=== PATIENT | female | born 1955 | race Caucasian/White ===

== ENCOUNTER 2017-02-06 15:57 | Emergency (ER) | payer OTHER ==
[2017-02-06 16:21] VITALS: BP 143/72; PULSE 79; TEMP 98.4; BMI 40.4
--- NOTE | 2017-02-06 16:35 | PDOC ---
History of Present Illness - General Chief Complaint: Wound Stated Complaint: RT FINGER INJURY Time Seen by Provider: 02/06/17 16:18 History Source: Patient Exam Limitations: No Limitations - History of Present Illness Initial Comments: 02/06/17 16:30 61 yr female with c/o redness around her cuticle for 3 days after biting nails. Pt states yesterday she noticed it was white so she soaked it and the pus drained. pain has improved. Severity: Yes: mild Location: reports: extremities Past History - Past Medical History Allergies/Adverse Reactions: Allergies Allergy/AdvReac Type Severity Reaction Status Date / Time nafcillin [Nafcillin] Allergy Intermediate Itching Verified 02/06/17 16:09 cefazolin Allergy Verified 02/06/17 16:09 Iodinated Contrast- Oral and Allergy Verified 02/06/17 16:09 IV Dye [IV Dye, Iodine Containing Contrast ] vancomycin Allergy Verified 02/06/17 16:09 Home Medications: Ambulatory Orders Amlodipine Besylate [Norvasc -] 10 mg PO DAILY #1 10/02/12 Atorvastatin Ca [Lipitor] 20 mg PO DAILY #1 10/02/12 Gemfibrozil 600 mg PO DAILY #1 10/02/12 Metformin HCl [Glucophage -] 500 mg PO BID #1 10/02/12 Omeprazole [Prilosec (RX)] 20 mg PO DAILY #1 10/02/12 Ramipril 2.5 mg PO DAILY #1 10/02/12 Aspirin 81 mg PO DAILY #1 02/11/13 Clobetasol Prop 0.05% Top Cr [Temovate (Nf)] 1 misc AD BID 06/14/13 Lipase/Protease/Amylase [Odin Carmen 24,000 Units Capsule] 1 each PO TID 06/14/13 Albuterol 0.083% Nebulizer Magali [Ventolin 0.083% Nebulizer Soln -] 1 neb NEB Q4H PRN #1 box 04/25/14 Salmeterol/Fluticasone [Advair 100Mcg/50Mcg -] 1 inh PO BID #1 diskus NS Eluxadoline [Viberzi] 75 mg PO ASDIR 02/06/17 Oxybutynin [Oxytrol For Women] 1 each TD ASDIR 02/06/17 Sulfamethoxazole/Trimethoprim [Bactrim Ds Tablet] 1 each PO BID #10 tablet 02/06 Anemia: No Asthma: Yes Cancer: No Cardiac Disorders: Yes CVA: No COPD: No CHF: No Dementia: No Diabetes: Yes GI Disorders: Yes (ACID REFLUX) Disorders: No HTN: Yes Hypercholesterolemia: Yes Kidney Stones: Yes (LITHOTRIPSY) Liver Disease: No Seizures: No Thyroid Disease: No - Surgical History Abdominal Surgery: Yes (UMBILICAL HERNIA REPAIR) Appendectomy: Yes (1988) Cardiac Surgery: Yes (PACEMAKER) Cholecystectomy: No Lung Surgery: No Neurologic Surgery: No Orthopedic Surgery: Yes (rt knee replace(titanium metal)) - Immunization History Immunization Up to Date: Yes - Suicide/Smoking/Psychosocial Hx Smoking Status: No Smoking History: Never smoked Have you smoked in the past 12 months: No Number of Cigarettes Smoked Daily: 0 Information on smoking cessation initiated: No Hx Alcohol Use: No Drug/Substance Use Hx: No Substance Use Type: None Hx Substance Use Treatment: No *Physical Exam - Vital Signs Last Vital Signs Temp Pulse Resp BP Pulse Ox 98.4 F 79 18 143/72 100 02/06/17 16:00 02/06/17 16:00 02/06/17 16:00 02/06/17 16:00 02/06/17 16:00 - Physical Exam General Appearance: Yes: Nourished, Appropriately Dressed, Obese HEENT: positive: EOMI, LOUISE Extremity: positive: Normal Capillary Refill, Normal Range of Motion, Swelling ( right ring finger with red area around the cuticle, no discharge or pus drainage ) Integumentary: positive: Rash (right abdominal area under folds of skin area of redness, white scaly approximately 5cm) Neurologic: positive: Fully Oriented, Alert, Normal Mood/Affect, Normal Response , Motor Strength 5/5 Procedures - Additional Procedures Progress: 02/06/17 16:37 paronychia cleaned with betadine bandaid placed Medical Decision Making - Medical Decision Making 02/06/17 16:37 cc: paronychia to the right ring finger that has healed on own yesterday when pt drained it at home, now it is red around the cuticle no fluctuance or drainage pt is worried because she is diabetic will clean and place pt on bactrim pt has nystatin cream that she will place on the area of skin fold excoraiton *DC/Admit/Observation/Transfer Diagnosis at time of Disposition: Fungal rash of trunk Paronychia of finger Qualifiers: Laterality: right Qualified Code(s): L03.011 - Cellulitis of right finger - Discharge Dispostion Disposition: HOME Condition at time of disposition: Good - Prescriptions Prescriptions: Sulfamethoxazole/Trimethoprim [Bactrim Ds Tablet] 1 each PO BID #10 tablet - Referrals Referrals: Stacy Guy MD [Primary Care Provider] - - Patient Instructions Additional Instructions: soak the finger twice a day in warm water with dish soap apply the Nystatin to the rash on your abdomen and keep that area dry take the antibiotics as directed for 5 days - Post Discharge Activity
== END 2017-02-06 16:36 | disposition home or self-care (01) ==
LOC: JERFT 15:57 → JER 15:57 → JERFT 16:36
DX: L03.011 Cellulitis of right finger (principal); B36.8 Other specified superficial mycoses; I10 Essential (primary) hypertension; E11.9 Type 2 diabetes mellitus without complications; Z79.84 Long term (current) use of oral hypoglycemic drugs; E78.00 Pure hypercholesterolemia, unspecified; J45.909 Unspecified asthma, uncomplicated; Z87.442 Personal history of urinary calculi
CPT/HCPCS: 99281-25

== ENCOUNTER 2017-05-25 21:56 | Inpatient (IN) | payer OTHER ==
[2017-05-25 22:41] VITALS: BMI 41.4
--- NOTE | 2017-05-25 23:33 | PDOC ---
History of Present Illness - General History Source: Patient Exam Limitations: No Limitations - History of Present Illness Initial Comments: 05/26/17 00:56 The patient is a 61 year old female with a significant PMH of HTN, asthma, hyperlipidemia, diabetes, GERD, and multiple hernias who presents to the emergency department with abdominal pain and diarrhea beginning approximately this morning. She also reports some nausea and abdominal distension but denies vomiting. The patient reports her abdominal pain is similar to when she had her most recent hernia about 6 months ago and feels a bump where her previous hernia presented. She denies recent travel or sick contacts. The patient denies chest pain, shortness of breath, headache and dizziness. Denies fever, chills, vomit, and constipation. Denies dysuria, frequency, urgency and hematuria. Allergies: Nafcillin, Cefazolin, Vancomycin. Oral & IV contrast. Past surgical history: Ventral hernia repair (6 months ago). Umbilical hernia repair. Appendectomy. Pacemaker placement. Right knee replacement. Social history: No reported cigarette, alcohol, or drug use. PCP: Dr. Stacy Guy <Alberto Toussaint - Last Filed: 05/26/17 01:51> - General History Source: Patient <Lupillo Velasquez - Last Filed: 05/30/17 19:33> - General Chief Complaint: Pain Stated Complaint: PAIN, ACUTE Time Seen by Provider: 05/25/17 23:29 Past History <Alberto Toussaint - Last Filed: 05/26/17 01:51> - Past Medical History Anemia: No Asthma: Yes Cancer: No Cardiac Disorders: Yes CVA: No COPD: No CHF: No Dementia: No Diabetes: Yes GI Disorders: Yes (ACID REFLUX) Disorders: No HTN: Yes Hypercholesterolemia: Yes Kidney Stones: Yes (LITHOTRIPSY) Liver Disease: No Seizures: No Thyroid Disease: No - Surgical History Abdominal Surgery: Yes (UMBILICAL HERNIA REPAIR) Appendectomy: Yes (1988) Cardiac Surgery: Yes (PACEMAKER) Cholecystectomy: No Lung Surgery: No Neurologic Surgery: No Orthopedic Surgery: Yes (rt knee replace(titanium metal)) - Immunization History Immunization Up to Date: Yes - Suicide/Smoking/Psychosocial Hx Smoking Status: No Smoking History: Never smoked Have you smoked in the past 12 months: No Number of Cigarettes Smoked Daily: 0 Information on smoking cessation initiated: No Hx Alcohol Use: No Drug/Substance Use Hx: No Substance Use Type: None Hx Substance Use Treatment: No <Lupillo Velasquez - Last Filed: 05/30/17 19:33> - Past Medical History Allergies/Adverse Reactions: Allergies Allergy/AdvReac Type Severity Reaction Status Date / Time nafcillin [Nafcillin] Allergy Intermediate Itching Verified 02/06/17 16:09 cefazolin Allergy Verified 02/06/17 16:09 Iodinated Contrast- Oral and Allergy Verified 02/06/17 16:09 IV Dye [IV Dye, Iodine Containing Contrast ] vancomycin Allergy Verified 02/06/17 16:09 Home Medications: Ambulatory Orders Amlodipine Besylate [Norvasc -] 10 mg PO DAILY #1 10/02/12 Atorvastatin Ca [Lipitor] 20 mg PO DAILY #1 10/02/12 Omeprazole [Prilosec (RX)] 20 mg PO DAILY #1 10/02/12 Ramipril 2.5 mg PO DAILY #1 10/02/12 metFORMIN HCL [Glucophage -] 500 mg PO BID #1 10/02/12 Aspirin 81 mg PO DAILY #1 02/11/13 Albuterol 0.083% Nebulizer Magali [Ventolin 0.083% Nebulizer Soln -] 1 neb NEB Q4H PRN #1 box 04/25/14 Eluxadoline [Viberzi] 75 mg PO ASDIR 02/06/17 Review of Systems - Review of Systems Able to Perform ROS?: Yes Comments:: 05/26/17 00:56 CONSTITUTIONAL: Absent: fever, chills, diaphoresis, generalized weakness, malaise, loss of appetite HEENT: Absent: rhinorrhea, nasal congestion, throat pain, throat swelling, difficulty swallowing, mouth swelling, ear pain, eye pain, visual Changes CARDIOVASCULAR: Absent: chest pain, syncope, palpitations, irregular heart rate, lightheadedness , peripheral edema RESPIRATORY: Absent: cough, shortness of breath, dyspnea with exertion, orthopnea, wheezing, stridor, hemoptysis GASTROINTESTINAL: (+) Abdominal pain. (+) Diarrhea. (+) Abdominal distension. (+ ) Nausea. Absent: vomiting, constipation, melena, hematochezia GENITOURINARY: Absent: dysuria, frequency, urgency, hesitancy, hematuria, flank pain, genital pain MUSCULOSKELETAL: Absent: myalgia, arthralgia, joint swelling SKIN: Absent: rash, itching, pallor HEMATOLOGIC/IMMUNOLOGIC: Absent: easy bleeding, easy bruising, lymphadenopathy, frequent infections ENDOCRINE: Absent: unexplained weight gain, unexplained weight loss, heat intolerance, cold intolerance NEUROLOGIC: Absent: headache, focal weakness or paresthesias, dizziness, unsteady gait, seizure, mental status changes, bladder or bowel incontinence PSYCHIATRIC: Absent: anxiety, depression, suicidal or homicidal ideation, hallucinations. <Alberto Toussaint - Last Filed: 05/26/17 01:51> *Physical Exam - Vital Signs Last Vital Signs Temp Pulse Resp BP Pulse Ox 98.3 F 94 H 18 147/87 96 05/25/17 22:37 05/25/17 22:37 05/25/17 22:37 05/25/17 22:37 05/25/17 22:37 - Physical Exam Comments: 05/26/17 00:57 GENERAL: Well developed, well nourished. Awake and alert. No acute distress. HEENT: Normocephalic, atraumatic. PERRLA, EOMI. No conjunctival pallor. Sclera are non- icteric. Moist mucous membranes. Oropharynx is clear. NECK: Supple. Full ROM. No JVD. Carotid pulses 2+ and symmetric, without bruits. No thyromegaly. No lymphadenopathy. CARDIOVASCULAR: Regular rate and rhythm. No murmurs, rubs, or gallops. Distal pulses are 2+ and symmetric. PULMONARY: No evidence of respiratory distress. Lungs clear to auscultation bilaterally. No wheezing, rales or rhonchi. ABDOMINAL: (+) Hernial defect just under the umbilicus. (+) Protuberant abdomen. Soft. Non-tender. No rebound or guarding. No organomegaly. Normoactive bowel sounds. MUSCULOSKELETAL Normal range of motion at all joints. No bony deformities or tenderness. No CVA tenderness. EXTREMITIES: No cyanosis. No clubbing. No edema. No calf tenderness. SKIN: Warm and dry. Normal capillary refill. No rashes. No jaundice. NEUROLOGICAL: Alert, awake, appropriate. Cranial nerves 2-12 intact. No deficits to light touch and temperature in face, upper extremities and lower extremities. No motor deficits in the in face, upper extremities and lower extremities. Normoreflexic in the upper and lower extremities. Normal speech. Toes are downgoing bilaterally. Gait is normal without ataxia. PSYCHIATRIC: Cooperative. Good eye contact. Appropriate mood and affect. <Alberto Toussaint - Last Filed: 05/26/17 01:51> - Vital Signs Last Vital Signs Temp Pulse Resp BP Pulse Ox 98.3 F 94 H 18 147/87 96 05/25/17 22:37 05/25/17 22:37 05/25/17 22:37 05/25/17 22:37 05/25/17 22:37 <Lupillo Velasquez - Last Filed: 05/30/17 19:33> Heart Score/ECG Review #1 05/26/17 01:51 Vent rate 92 bpm Normal sinus rhythm Left axis deviation Right bundle branch block Possible lateral infarct, age undetermined Abnormal ECG <Alberto Toussaint - Last Filed: 05/26/17 01:51> ED Treatment Course - LABORATORY CBC & Chemistry Diagram: 05/26/17 00:30 05/26/17 00:30 - ADDITIONAL ORDERS Additional order review: Laboratory Results 05/25/17 23:54 Urine Color Yellow Urine Appearance Clear Urine pH 5.0 Ur Specific [place] 1.031 Urine Protein 2+ H Urine Glucose (UA) Negative Urine Ketones Trace H Urine Blood Negative Urine Nitrite Negative Urine Bilirubin Negative Urine Urobilinogen Negative Ur Leukocyte Esterase 1+ H Urine WBC (Auto) 14 Urine RBC (Auto) 9 Ur Epithelial Cells Rare Urine Mucus Rare 05/26/17 00:30 RBC 4.75 MCV 82.3 MCHC 32.4 RDW 14.0 MPV 9.3 Neutrophils % 86.5 H Lymphocytes % 6.4 L D Monocytes % 5.4 Eosinophils % 1.1 D Basophils % 0.6 - Medications Given in the ED: ED Medications Discontinued Medications Generic Name Dose Route Start Last Admin Trade Name Freq PRN Reason Stop Dose Admin Sodium Chloride 1,000 mls @ 1,000 mls/hr 05/25/17 23:34 05/26/17 00:19 Normal Saline - IV 05/26/17 00:33 1,000 mls/hr ASDIR STA Administration <Alberto Toussaint - Last Filed: 05/26/17 01:51> - LABORATORY CBC & Chemistry Diagram: 05/26/17 12:55 05/26/17 00:30 <Lupillo Velasquez - Last Filed: 05/30/17 19:33> Medical Decision Making - Medical Decision Making 05/30/17 19:33 Dr. Velasquez: The scribe's documentation has been prepared under my direction and personally reviewed by me in its entirery. I confirm that the note above accurately reflects all work, treatment, procedures, and medical decision making performed by me. <Lupillo Velasquez - Last Filed: 05/30/17 19:33> *DC/Admit/Observation/Transfer - Attestations Scribe Attestion: 05/26/17 00:57 Documentation prepared by Alberto Toussaint, acting as nuclear medical tech for Lupillo Velasquez DO. <Alberto Toussaint - Last Filed: 05/26/17 01:51> - Discharge Dispostion Admit: Yes <Lupillo Velasquez - Last Filed: 05/30/17 19:33> Diagnosis at time of Disposition: Abdominal pain, Small bowel obstruction - Discharge Dispostion Disposition: TRANSFER ACUTE CARE/OTHER HOSP Condition at time of disposition: Stable
[2017-05-25] MEDS ORDERED: SODIUM CHLORIDE 1,000 ML IV STA (23:34)
[2017-05-26 00:06] LABS: URINE APPEARANCE CLEAR; URINE BILIRUBIN NEGATIVE (NEGATIVE); URINE BLOOD NEGATIVE (NEGATIVE); URINE COLOR YELLOW; URINE GLUCOSE (UA) NEGATIVE (NEGATIVE); URINE KETONE TRACE (NEGATIVE); URINE NITRITE NEGATIVE (NEGATIVE); URINE UROBILINOGEN NEGATIVE mg/dL (0.2-1.0)
[2017-05-26 00:13] LABS: URINE LEUK ESTERASE 1+ (NEGATIVE); URINE PROTEIN 2+ (NEGATIVE)
[2017-05-26 00:14] LABS: EPI CELLS RARE /HPF (FEW); URINE MUCUS RARE
[2017-05-26 00:40] LABS: BASO % 0.6 % (0-2.0); EOS % 1.1 % (0-4.5); HEMATOCRIT 39.1 % (32.4-45.2); HEMOGLOBIN 12.7 GM/dL (10.7-15.3); LYMPH % 6.4 % (8-40); MCH 26.7 pg (25.7-33.7); MCHC 32.4 g/dl (32.0-36.0); MEAN CELL VOLUME 82.3 fl (80-96); MEAN PLT VOLUME 9.3 fl (7.5-11.1); MONO % 5.4 % (3.8-10.2); NEUT % 86.5 % (42.8-82.8); PLATELET COUNT 321 K/MM3 (134-434); RBC 4.75 M/mm3 (3.60-5.2); WHITE BLOOD COUNT 12.2 K/mm3 (4.0-10.0)
[2017-05-26] MEDS ORDERED: ONDANSETRON 4 MG/2 ML VIAL IVPUSH STA ×2 (01:02→02:46)
[2017-05-26] MEDS ORDERED: HYDROmorphone HCL CARPU-JECT 1 MG/1 ML DISP.SYRIN IVPUSH ONE (01:02)
[2017-05-26] MEDS ORDERED: HYDROmorphone HCL CARPU-JECT 1 MG/1 ML DISP.SYRIN IVPUSH PRN (01:04)
[2017-05-26 01:05] LABS: ALBUMIN 3.7 g/dl (3.4-5.0); ANION GAP 12 (8-16); BILIRUBIN,TOTAL 0.5 mg/dL (0.2-1.0); BLOOD UREA NITROGEN 15 mg/dL (7-18); CALCIUM 9.7 mg/dL (8.5-10.1); CHLORIDE 99 mmol/L (98-107); CO2 26 mmol/L (21-32); CREATININE 0.7 mg/dL (0.55-1.02); GLUCOSE,RANDOM 176 mg/dL (74-106); LIPASE 141 U/L (73-393); MAGNESIUM 1.8 mg/dL (1.8-2.4); POTASSIUM 4.2 mmol/L (3.5-5.1); SGOT/AST 14 U/L (15-37); SGPT/ALT 21 U/L (12-78); SODIUM 137 mmol/L (136-145); TOT PROT 8.2 g/dl (6.4-8.2)
[2017-05-26 01:06] LABS: ALK PHOS 105 U/L (45-117)
[2017-05-26] MEDS ORDERED: ONDANSETRON 4 MG/2 ML VIAL ONE ×2 (01:08→02:46)
[2017-05-26] MEDS ORDERED: HYDROmorphone HCL CARPU-JECT 1 MG/1 ML DISP.SYRIN ONE (01:08)
[2017-05-26] MEDS ORDERED: DEXTROSE 5%-0.45% SALINE 1,000 ML IV SCH (01:15)
[2017-05-26 01:54] LABS: INR 1.07 (0.82-1.09); PROTHROMBIN TIME (PATIENT) 12.1 SEC (9.98-11.88)
[2017-05-26] MEDS ORDERED: LIDOCAINE HCL 2% JELLY 10 ML CARTRIDGE ONE (02:37)
[2017-05-26] MEDS ORDERED: LIDOCAINE HCL 2% JELLY 10 ML CARTRIDGE PR ONE (02:46)
[2017-05-26] MEDS ORDERED: HYDROmorphone HCl/Pf 2 MG/ML VIAL - FOR OR PYXIS USE ONE (08:56)
--- NOTE | 2017-05-26 09:04 | EKG ---
Test Reason : Blood Pressure : / mmHG Vent. Rate : 092 BPM Atrial Rate : 092 BPM P-R Int : 188 ms QRS Dur : 154 ms QT Int : 418 ms P-R-T Axes : 043 -36 031 degrees QTc Int : 516 ms NORMAL SINUS RHYTHM LEFT AXIS DEVIATION RIGHT BUNDLE BRANCH BLOCK POSSIBLE LATERAL INFARCT , AGE UNDETERMINED ABNORMAL ECG Confirmed by BOO COLLINS MD ([id number]) on 05/26/2017 9:03:39 AM Referred By: Confirmed By:BOO COLLINS MD
[2017-05-26] MEDS ORDERED: PANTOPRAZOLE SODIUM 80 MG in SODIUM CHLORIDE 100 ML IVPB SCH (11:00)
--- NOTE | 2017-05-26 11:19 | HP ---
Admitting History and Physical - Admission Chief Complaint: abdominla pain, diarrhea and black stools - Smoking History Smoking history: Never smoked Have you smoked in the past 12 months: No Aproximately how many cigarettes per day: 0 - Alcohol/Substance Use Hx Alcohol Use: No Home Medications - Allergies Allergies/Adverse Reactions: Allergies Allergy/AdvReac Type Severity Reaction Status Date / Time nafcillin [Nafcillin] Allergy Intermediate Itching Verified 02/06/17 16:09 cefazolin Allergy Verified 02/06/17 16:09 Iodinated Contrast- Oral and Allergy Verified 02/06/17 16:09 IV Dye [IV Dye, Iodine Containing Contrast ] vancomycin Allergy Verified 02/06/17 16:09 - Home Medications Home Medications: Ambulatory Orders Amlodipine Besylate [Norvasc -] 10 mg PO DAILY #1 10/02/12 Atorvastatin Ca [Lipitor] 20 mg PO DAILY #1 10/02/12 Omeprazole [Prilosec (RX)] 20 mg PO DAILY #1 10/02/12 Ramipril 2.5 mg PO DAILY #1 10/02/12 metFORMIN HCL [Glucophage -] 500 mg PO BID #1 10/02/12 Aspirin 81 mg PO DAILY #1 02/11/13 Albuterol 0.083% Nebulizer Magali [Ventolin 0.083% Nebulizer Soln -] 1 neb NEB Q4H PRN #1 box 04/25/14 Eluxadoline [Viberzi] 75 mg PO ASDIR 02/06/17 Physical Examination Vital Signs: Vital Signs Temperature 98.3 F 05/26/17 06:32 Pulse Rate 97 H 05/26/17 06:32 Respiratory Rate 18 05/26/17 06:32 Blood Pressure 127/74 05/26/17 06:32 O2 Sat by Pulse Oximetry (%) 96 05/26/17 06:32 Gastrointestinal: Yes: Tenderness (in the lefyt lower quadrant,), Other (absent BS in all quadrants) Labs: CBC, BMP 05/26/17 00:30 05/26/17 00:30 Problem List - Problems (1) SBO (small bowel obstruction) Assessment/Plan: NPo iv fluids R/o gangrene Code(s): K56.609 - UNSP INTESTNL OBST, UNSP TO PARTIAL VERSUS COMPLETE OBST (2) Small bowel obstruction Assessment/Plan: surgical consult NPO NG tube to intermittent suctioning on hold due to bloody aspirate and h/o black stools Code(s): K56.69 - OTHER INTESTINAL OBSTRUCTION * DO NOT USE * (3) GI bleed Assessment/Plan: upper?? associated with black stools aspirate is hemorrhagic monitor CBC hold ng suctioning for now Protonix iv Code(s): K92.2 - GASTROINTESTINAL HEMORRHAGE, UNSPECIFIED (4) Diabetes mellitus type 2 in obese Assessment/Plan: D51/2 NS with K monitor BGM's ad correct with Insul sliding scale Code(s): E11.69 - TYPE 2 DIABETES MELLITUS WITH OTHER SPECIFIED COMPLICATION; E66.9 - OBESITY, UNSPECIFIED
[2017-05-26] MEDS: D5-1/2NS+10 MEQ KCL - 10 MEQ/1,000 ML INFUS.BAG IV SCH ×2 (11:23→13:08)
[2017-05-26] MEDS ORDERED: PANTOPRAZOLE SODIUM 160 MG in DEXTROSE 5%-WATER - 290 ML IVPB SCH (12:30)
[2017-05-26 13:08] LABS: HEMATOCRIT 36.3 % (32.4-45.2); HEMOGLOBIN 11.7 GM/dL (10.7-15.3); MCH 26.8 pg (25.7-33.7); MCHC 32.4 g/dl (32.0-36.0); MEAN CELL VOLUME 82.9 fl (80-96); MEAN PLT VOLUME 8.8 fl (7.5-11.1); PLATELET COUNT 268 K/MM3 (134-434); RBC 4.38 M/mm3 (3.60-5.2); WHITE BLOOD COUNT 6.3 K/mm3 (4.0-10.0)
[2017-05-26] MEDS ORDERED: INSULIN SLIDING SCALE (NOVOLOG) 1 VIAL SQ SCH (15:00)
--- NOTE | 2017-05-26 16:11 | PN ---
Progress Note (short form) - Note Progress Note: surgery 61f with multiple medical problems. previous complex incisional hernia repair for compromised bowel and loss of domain at [facility], presents with possible psbo secondary to recurrence of hernia. Contacted Dr. Blackwood and spoke with BANK ACCOUNTANT Eliane Jama. Spoke with Dr. Kelly who will accept pt in transfer. this is a complicated medical and surgical patient who should be managed by her surgeon at [facility]. I spoke with Dr. Guy, ER charge nurse , and ER director.
--- NOTE | 2017-05-26 18:06 | PN ---
Progress Note (short form) - Note Progress Note: came to see patient, she is being transferred to [facility]
[2017-05-26 19:31] VITALS: BP 137/70; PULSE 71; TEMP 98.3
== END 2017-05-26 18:00 | disposition short-term general hospital (02) | DRG 389 ==
LOC: JER 21:56 → JERBED 05-26 01:01 → UNDOADMIN 05-26 01:13
PROVIDERS: ADMIT Internal Medicine; ATTEND Internal Medicine
DX: K56.609 Unspecified intestinal obstruction, unspecified as to partial versus complete obstruction (principal); Z68.41 Body mass index [BMI] 40.0-44.9, adult; K92.2 Gastrointestinal hemorrhage, unspecified; E11.9 Type 2 diabetes mellitus without complications; E66.9 Obesity, unspecified; K46.9 Unspecified abdominal hernia without obstruction or gangrene; I10 Essential (primary) hypertension; E78.5 Hyperlipidemia, unspecified; K21.9 Gastro-esophageal reflux disease without esophagitis; J45.909 Unspecified asthma, uncomplicated
CPT/HCPCS: 36415; 71045-TC-FY; 74176-TC; 80053; 81003; 81015; 82962; 83690; 83735; 85025; 85027; 85610; 86850; 86900; 86901; 93005; 93010; 99285-25

== ENCOUNTER 2018-01-14 14:13 | Emergency (ER) | payer OTHER ==
[2018-01-14 14:23] VITALS: BMI 41.3
--- NOTE | 2018-01-14 14:33 | PDOC ---
History of Present Illness - General Chief Complaint: Wound Stated Complaint: INFECTION ON THE FORTH TOE/RASH Time Seen by Provider: 01/14/18 14:32 History Source: Patient Exam Limitations: No Limitations - History of Present Illness Initial Comments: 01/14/18 14:44 62 year old female with PMH DM, HTN presents to ED for left fourth toe pain/ redness/swelling x1 week. She states a week ago she cut the nail and since then it has been becoming increasingly red. She also complains of rash to her left abdominal skin fold x3 days, she states she has been using her sister's nystatin cream, and it has been improving her symptoms. She complains of non- productive cough and voice hoarsness today. she denies fever, chills, nausea, vomiting, diarrhea, chest pain, shortness of breath, weakness, numbness, tingling, inability to bear weight. PCP - [facility] Allergies - cefazolin (rash), vancomycin Past History - Past Medical History Allergies/Adverse Reactions: Allergies Allergy/AdvReac Type Severity Reaction Status Date / Time nafcillin [Nafcillin] Allergy Intermediate Itching Verified 01/14/18 14:23 cefazolin Allergy Verified 01/14/18 14:23 Iodinated Contrast- Oral and Allergy Verified 01/14/18 14:23 IV Dye [IV Dye, Iodine Containing Contrast ] vancomycin Allergy Verified 01/14/18 14:23 Home Medications: Ambulatory Orders Amlodipine Besylate [Norvasc -] 10 mg PO DAILY #1 10/02/12 Atorvastatin Ca [Lipitor] 20 mg PO DAILY #1 10/02/12 Omeprazole [Prilosec (RX)] 20 mg PO DAILY #1 10/02/12 Ramipril 2.5 mg PO DAILY #1 10/02/12 metFORMIN HCL [Glucophage -] 500 mg PO BID #1 10/02/12 Aspirin 81 mg PO DAILY #1 02/11/13 Albuterol 0.083% Nebulizer Magali [Ventolin 0.083% Nebulizer Soln -] 1 neb NEB Q4H PRN #1 box 04/25/14 Eluxadoline [Viberzi] 75 mg PO ASDIR 02/06/17 Clindamycin [Cleocin -] 600 mg PO Q8H #42 capsule 01/14/18 Nystatin Cream [Mycostatin Cream -] 1 applic TP BID #1 applic 01/14/18 levoFLOXacin [Levaquin] 750 mg PO DAILY #14 tab 01/14/18 Anemia: No Asthma: Yes Cancer: No Cardiac Disorders: Yes CVA: No COPD: No CHF: No Dementia: No Diabetes: Yes GI Disorders: Yes (ACID REFLUX) Disorders: No HTN: Yes Hypercholesterolemia: Yes Kidney Stones: Yes (LITHOTRIPSY) Liver Disease: No Seizures: No Thyroid Disease: No - Surgical History Abdominal Surgery: Yes (UMBILICAL HERNIA REPAIR) Appendectomy: Yes (1988) Cardiac Surgery: Yes (PACEMAKER) Cholecystectomy: No Lung Surgery: No Neurologic Surgery: No Orthopedic Surgery: Yes (rt knee replace(titanium metal)) - Immunization History Immunization Up to Date: Yes - Suicide/Smoking/Psychosocial Hx Smoking Status: No Smoking History: Never smoked Have you smoked in the past 12 months: No Number of Cigarettes Smoked Daily: 0 Information on smoking cessation initiated: No Hx Alcohol Use: No Drug/Substance Use Hx: No Substance Use Type: None Hx Substance Use Treatment: No Review of Systems - Review of Systems Able to Perform ROS?: Yes Comments:: 01/14/18 14:48 General: denies fever, chills, night sweats, generalized weakness. HEENT: admits to voice hoarseness. denies sore throat, rhinorrhea, ear pain. Heart: denies chest pain, palpitations, syncope, lower extremity swelling, diaphoresis. Respiratory: admits to cough. denies shortness of breath, sputum production, hemoptysis. Abdomen: denies abdominal pain, nausea, vomiting, diarrhea, constipation, blood in stool. : denies dysuria, increased urinary frequency, hematuria, urinary incontinence , flank pain. Back: denies back pain. Musculoskeletal: admits to left fourth toe swelling and pain. Neurological: denies headache, dizziness, numbness, tingling, weakness. Skin: admits to left fourth toe redness/swelling, and LLQ skin fold rash. denies laceration, abrasion. *Physical Exam - Vital Signs Last Vital Signs Temp Pulse Resp BP Pulse Ox 98.7 F 78 18 117/70 100 01/14/18 14:20 01/14/18 14:20 01/14/18 14:20 01/14/18 14:20 01/14/18 14:20 - Physical Exam Comments: 01/14/18 14:50 Constitutional: Well-nourished, Well-developed, appearing stated age. HEENT: head is normocephalic, atraumatic. EOMI. PERRLA. Neck: supple. Full ROM. Heart: regular rhythm. no murmurs, rubs or gallops. Lungs: clear to auscultation bilaterally. no crackles, rhonchi or wheezing. no stridor. Abdomen: soft, nontender. midline umbilical hernia present, will reduce, nontender. midline linear vertical surgical scar, no erythema, no discharge, no dehiscence. suprapubic horizontal linear surgical scar, no erythema, no discharge, no dehiscence. normal bowel sounds. no rebound, no guarding. Extremities: left fourth toe erythema and swelling noted, consistent with paronychia. Peripheral pulses intact and equal. No lower extremity edema. Neurological: CN 2-12 grossly intact. Moves all four extremities. Psych: awake, alert, oriented x3. Follows commands. Answers questions appropriately. Skin: LLQ skin fold has white rash consistent with yeast. Medical Decision Making - Medical Decision Making 01/14/18 15:06 62 year old female with PMH DM, HTN presents to ED for left fourth toe pain/ redness/swelling x1 week since she cut her toe nail. She also complains of skin fold rash x3 days and cough/voice hoarsness xtoday. Nail appears erythematous. Skin fold rash is consistent with yeast. Lungs are clear, no abnormal sounds. Initial Vital Signs Temp Pulse Resp BP Pulse Ox 98.7 F 78 18 117/70 100 01/14/18 14:20 01/14/18 14:20 01/14/18 14:20 01/14/18 14:20 01/14/18 14:20 Afebrile. No tachycardia. No hypotension. No hypoxia on room air. Concern for diabetic foot ulcer, paronychia. - Cefazolin allergic - First dose Clindamycin and Levaquin ordered. - X-ray for concern for osteo Concern for hyperglycemia - Fingerstick glucose ordered Concern for yeast infection - Nystatin cream prescribed. 01/14/18 15:21 Dr. Guy paged. - Would like patient to be able to have close follow up Monday since hx Diabetes 10/07/18 17:04 2 cc of 1% lidocaine applied to left fourth toe wound was cleaned with cloraprep paronychia opened with 11 blade wound expressed blood, no pus Bacitracin applied over the wound Compression dressing applied over top I gave the patient the rest of the bottle of the bacitracin. I told the patient to keep the wound covered and not to get it wet for 48 hours , or until she is seen by her PCP. She expressed she understood. I discussed the importance of following up with the patient, she stated she understood and would go to her PCP's office tomorrow morning. I discussed the return precautions with the patient, she stated she understood. I discussed the plan for care with the patient, she agreed to be discharged with antibiotic prescriptions and close follow up. *DC/Admit/Observation/Transfer Diagnosis at time of Disposition: Paronychia, Cellulitis, Diabetes mellitus type 2 in obese - Discharge Dispostion Disposition: HOME Condition at time of disposition: Stable Decision to Admit order: No - Prescriptions Prescriptions: Clindamycin [Cleocin -] 600 mg PO Q8H #42 capsule levoFLOXacin [Levaquin] 750 mg PO DAILY #14 tab Nystatin Cream [Mycostatin Cream -] 1 applic TP BID #1 applic - Referrals Referrals: Stacy Guy MD [Primary Care Provider] - - Patient Instructions Printed Discharge Instructions: DI for Paronychia, DI for Diabetes Type 2 Additional Instructions: You were seen today for toe pain. Your X-ray was normal. Keep the wound covered for 48 hours or until you see your primary care doctor. I have sent two antibiotic prescriptions to your pharmacy. Take by mouth as directed on the bottle. Do not miss any doses. Pick it up today. You can develop diarrhea or yeast infections from antibiotic use, take an over the counter pro-biotic or eat yogurt at least once a day while you are taking antibiotic to try to avoid diarrhea. I have sent a prescription for nystatin cream for your rash to your pharmacy. Use twice a day until your symptoms resolve. Keep the area as dry as possible. Drink lots of fluids, like water or gatorade, to stay hydrated. I spoke with your primary care doctor, who stated that you can come into the office in the morning either Monday or Monday. Call before you come if you can. Your care is not complete until you follow up. Return to the Emergency Department for fever, chills, body aches, vomiting, blueness of toe, white discharge from toe, chest pain, shortness of breath, or any other new, worsening or concerning symptoms. - Post Discharge Activity Forms/Work/School Notes: Back to Work
[2018-01-14] MEDS ORDERED: CLINDAMYCIN HCL 300 MG CAPSULE PO ONE (15:03)
--- NOTE | 2018-01-14 15:05 | PDOC ---
Attending Attestation - HPI HPI: 01/14/18 15:31 The patient is a 62 year old female with a significant past medical history of DM and HTN who presents to the ER with left fourth toe pain for the past week. The patient states she cut her toe one week ago, and noticed increased redness and swelling to the left fourth toe. Patient is still able to bear weight on her left foot. Patient decided to come to the ER as she would not be able to see Dr. Guy for another 2 days. Patient notes she has not been checking her blood glucose at home. Patient is also complaining of a rash to her left abdominal skin fold and reports she has been using her sisters nystatin cream with some improvement. The patient denies chest pain, shortness of breath, headache, and dizziness. Denies fever, chills, nausea, vomit, diarrhea, and constipation. Denies dysuria, frequency, urgency, and hematuria. Allergies: cefazolin, vancomycin Past surgical history: None reported. Social history: No reported alcohol, drug, or cigarette use. PCP: Dr. Guy - Physicial Exam PE: 01/14/18 15:31 ADULT PHYSICAL EXAM Constitutional: Awake, alert, oriented. No acute distress. Head: Normocephalic. Atraumatic Eyes: PERRL. EOMI. Conjunctivae are not pale. ENT: Mucous membranes are moist and intact. Posterior pharynx without exudates or erythema. Uvula midline. Neck: Supple. Full ROM. No lymphadenopathy. Cardiovascular: Regular rate. Regular rhythm. S1, S2 regular. Distal pulses are 2+ and symmetric. Pulmonary/Chest: No evidence of respiratory distress. Clear to auscultation bilaterally No wheezing, rales or rhonchi. Abdominal: Soft and non-distended. There is no tenderness. No rebound, guarding or rigidity. No organomegaly. No palpable masses. Good bowel sounds. Back: No CVA tenderness. Musculoskeletal: No edema. No cyanosis. No clubbing. Full range of motion in all extremities. Nocalf tenderness. Radial/pedal pulses are intact and 2+ bilaterally Skin: Skin is warm and dry. No petechiae. No purpura. (+) Left skin fold fungus. (+) Left 4th toe with paronychia. Neurological: Alert and oriented to person, place, and time. Cranial nerves II -XII are grossly intact. Normal speech. Strength is grossly symmetric. No sensory deficits. Psychiatric: Good eye contact. Normal interaction, affect and behavior. <Cecy Hayes - Last Filed: 01/14/18 15:31> - Resident Resident Name: Ama Gurrola - ED Attending Attestation I have performed the following: I have examined & evaluated the patient, The case was reviewed & discussed with the resident, I agree w/resident's findings & plan, Exceptions are as noted - Medical Decision Making 01/14/18 15:04 I, Dr. Kacy Del Angel, DO, attest that this document has been prepared under my direction and personally reviewed by me in its entirety. I further attest, that it accurately reflects all work, treatment, procedures and medical decision -making performed by me. 01/14/18 15:21 a/p: 62yo female with L 4th toe with paronychia and fungal infection under skin fold -no f/c -pt is nontoxic in appearance -pt cut her own toenails earlier this week and cut too deep, now with paryncyhia and mild redness to the toe -pt is diabetic -also with fungal infection under pannus -will give nystatin for fungal infection -will check gluc -will I&D paronychia and will give abx given dm -call paced to Dr. Guy 01/14/18 16:15 resident discussed the case with Dr. Guy who recommends the patietn call the office and will see the patient same day 01/14/18 17:17 resident performed I&D of the toe - will d/c to home with abx and close follow up with Dr. Guy <Kacy Del Angel - Last Filed: 01/14/18 17:18>
[2018-01-14] MEDS ORDERED: CLINDAMYCIN HCL 150 MG CAPSULE (FP) ONE (15:56)
[2018-01-14] MEDS ORDERED: LIDOCAINE HCL 1%, 10 MG/ML (50 mL VIAL) SQ ONE (16:18)
[2018-01-14] MEDS ORDERED: LIDOCAINE HCL/PF 1% SDV 5ML VIAL ONE (16:22)
[2018-01-14] MEDS ORDERED: BACITRACIN 15 GM TUBE TOPICAL OINTMENT TP ONE (16:49)
[2018-01-14] MEDS ORDERED: BACITRACIN 0.9 GM PACKET ONE (16:51)
[2018-01-14] MEDS ORDERED: BACITRACIN 15 GM TUBE TOPICAL OINTMENT ONE (16:52)
[2018-01-14 17:45] VITALS: BP 139/75; PULSE 77; TEMP 98.2
== END 2018-01-14 17:45 | disposition home or self-care (01) ==
LOC: JER 14:13
PROC: 0J9R0ZZ Drainage of Left Foot Subcutaneous Tissue and Fascia, Open Approach (ICD-10-PCS; principal; 2018-01-14)
DX: L03.032 Cellulitis of left toe (principal); I10 Essential (primary) hypertension; E11.9 Type 2 diabetes mellitus without complications; Z79.84 Long term (current) use of oral hypoglycemic drugs; E78.00 Pure hypercholesterolemia, unspecified; E66.9 Obesity, unspecified; Z68.41 Body mass index [BMI] 40.0-44.9, adult; Z87.442 Personal history of urinary calculi; Z96.651 Presence of right artificial knee joint
CPT/HCPCS: 10060; 73630-TC-LT; 99281-25

== ENCOUNTER 2018-01-31 19:49 | Emergency (ER) | payer OTHER ==
--- NOTE | 2018-01-31 19:57 | PDOC ---
Rapid Medical Evaluation Chief Complaint: Pain Time Seen by Provider: 01/31/18 19:50 Medical Evaluation: Allergies Allergy/AdvReac Type Severity Reaction Status Date / Time nafcillin [Nafcillin] Allergy Intermediate Itching Verified 01/14/18 14:23 cefazolin Allergy Verified 01/14/18 14:23 Iodinated Contrast- Oral and Allergy Verified 01/14/18 14:23 IV Dye [IV Dye, Iodine Containing Contrast ] vancomycin Allergy Verified 01/14/18 14:23 01/31/18 19:50 62 year old female with lower abdominal pain after eating outside food 2 days ago with mild nausea. "seltzer water with [place] is not helping my gastritis as per patient." PE: patient alert ox3. reducible ventral hernia. no abdominal tenderness on exam PMHX: HTN, diabetes, psoriasis, abdominal hernia surgery A: abdominal pain P; labs urine Discharge Disposition - Diagnosis Abdominal pain Qualifiers: Abdominal location: lower abdomen, unspecified Qualified Code(s): R10.30 - Lower abdominal pain, unspecified - Referrals - Patient Instructions - Post Discharge Activity
[2018-01-31] MEDS ORDERED: SODIUM CHLORIDE 1,000 ML IV SCH (20:00)
[2018-01-31] MEDS ORDERED: ONDANSETRON 4 MG/2 ML VIAL IVPUSH ONE (20:00)
[2018-01-31 20:04] VITALS: BMI 40.7
[2018-01-31 20:26] LABS: BASO % 1.1 % (0-2.0); EOS % 4.6 % (0-4.5); HEMATOCRIT 38.8 % (32.4-45.2); LYMPH % 19.5 % (8-40); MCH 27.9 pg (25.7-33.7); MCHC 33.5 g/dl (32.0-36.0); MEAN CELL VOLUME 83.3 fl (80-96); MEAN PLT VOLUME 9.1 fl (7.5-11.1); MONO % 7.1 % (3.8-10.2); NEUT % 67.7 % (42.8-82.8); PLATELET COUNT 312 K/MM3 (134-434); RBC 4.67 M/mm3 (3.60-5.2); RDW 13.8 % (11.6-15.6); WHITE BLOOD COUNT 7.5 K/mm3 (4.0-10.0)
[2018-01-31] MEDS ORDERED: ONDANSETRON 4 MG/2 ML VIAL ONE (20:32)
[2018-01-31 21:00] LABS: ALK PHOS 117 U/L (45-117); ANION GAP 9 MMOL/L (8-16); BILIRUBIN,TOTAL 0.4 mg/dL (0.2-1); BLOOD UREA NITROGEN 10 mg/dL (7-18); CALCIUM 9.3 mg/dL (8.5-10.1); CHLORIDE 104 mmol/L (98-107); CO2 26 mmol/L (21-32); CREATININE 0.5 mg/dL (0.55-1.3); GLUCOSE,RANDOM 116 mg/dL (74-106); LIPASE 66 U/L (73-393); POTASSIUM 3.9 mmol/L (3.5-5.1); SGOT/AST 17 U/L (15-37); SGPT/ALT 25 U/L (13-61); SODIUM 139 mmol/L (136-145); TOT PROT 7.9 g/dl (6.4-8.2)
[2018-01-31] MEDS ORDERED: FAMOTIDINE 20 MG/50 ML IVPB 20 MG/50 ML MG IVPB ONE ×2 (21:21→21:38)
--- NOTE | 2018-01-31 21:21 | PDOC ---
History of Present Illness - General Chief Complaint: Pain Stated Complaint: GASTRITIS Time Seen by Provider: 01/31/18 19:50 - History of Present Illness Initial Comments: 01/31/18 22:14 The patient is a 62 year old female with a history of HTN, HLD, DM, CAD, Hernia , SBO who presents for evaluation of abdominal pain. The patient reports a 2 day history of crampy lower abdominal pain beginning after eating food from a constitution party. She states continued symptoms with some associated nausea prompting her presentation to the ED for further evaluation. She otherwise denies fevers, chills, SOB, chest pain, vomiting, or changes with urination or bowel movements. Past History - Past Medical History Allergies/Adverse Reactions: Allergies Allergy/AdvReac Type Severity Reaction Status Date / Time nafcillin [Nafcillin] Allergy Intermediate Itching Verified 01/31/18 20:04 cefazolin Allergy Verified 01/31/18 20:04 Iodinated Contrast- Oral and Allergy Verified 01/31/18 20:04 IV Dye [IV Dye, Iodine Containing Contrast ] vancomycin Allergy Verified 01/31/18 20:04 Home Medications: Ambulatory Orders Amlodipine Besylate [Norvasc -] 10 mg PO DAILY #1 10/02/12 Atorvastatin Ca [Lipitor] 20 mg PO DAILY #1 10/02/12 Omeprazole [Prilosec (RX)] 20 mg PO DAILY #1 10/02/12 Ramipril 2.5 mg PO DAILY #1 10/02/12 metFORMIN HCL [Glucophage -] 500 mg PO BID #1 10/02/12 Aspirin 81 mg PO DAILY #1 02/11/13 Albuterol 0.083% Nebulizer Magali [Ventolin 0.083% Nebulizer Soln -] 1 neb NEB Q4H PRN #1 box 04/25/14 Eluxadoline [Viberzi] 75 mg PO ASDIR 02/06/17 Clindamycin [Cleocin -] 600 mg PO Q8H #42 capsule 01/14/18 Nystatin Cream [Mycostatin Cream -] 1 applic TP BID #1 applic 01/14/18 levoFLOXacin [Levaquin] 750 mg PO DAILY #14 tab 01/14/18 Nystatin Cream [Mycostatin Cream -] 1 applic TP BID #1 applic 01/16/18 Anemia: No Asthma: Yes Cancer: No Cardiac Disorders: Yes CVA: No COPD: No CHF: No Dementia: No Diabetes: Yes GI Disorders: Yes (ACID REFLUX) Disorders: No HTN: Yes Hypercholesterolemia: Yes Kidney Stones: Yes (LITHOTRIPSY) Liver Disease: No Seizures: No Thyroid Disease: No - Surgical History Abdominal Surgery: Yes (UMBILICAL HERNIA REPAIR) Appendectomy: Yes (1988) Cardiac Surgery: Yes (PACEMAKER) Cholecystectomy: No Lung Surgery: No Neurologic Surgery: No Orthopedic Surgery: Yes (rt knee replace(titanium metal)) - Immunization History Immunization Up to Date: Yes - Suicide/Smoking/Psychosocial Hx Smoking Status: No Smoking History: Never smoked Have you smoked in the past 12 months: No Number of Cigarettes Smoked Daily: 0 Information on smoking cessation initiated: No Hx Alcohol Use: No Drug/Substance Use Hx: No Substance Use Type: None Hx Substance Use Treatment: No Review of Systems - Review of Systems Comments:: 01/31/18 22:16 Constitutional: No fevers, chills, fatigue, malaise HEENT: No Rhinorrhea, nasal congestion, visual changes Cardiovascular: No chest pain, syncope, palpitations, lightheadedness Respiratory: No Cough, SOB, Hemoptysis, Gastrointestinal: Abdominal pain, nausea. No Vomiting, Constipation, Diarrhea, Melena Genitourinary: No Dysuria, Frequency, Urgency, Hesitancy, Hematuria, Flank pain Musculoskeletal: No Myalgia, arthralgia Skin: No rashes, itching, bruising, pallor Neurologic: No Headache, Dizziness, Numbness, Weakness, or Tingling Psychiatric: No Hallucinations. No SI or HI *Physical Exam - Vital Signs Last Vital Signs Temp Pulse Resp BP Pulse Ox 98.7 F 77 16 147/78 96 01/31/18 20:01 01/31/18 20:01 01/31/18 20:01 01/31/18 20:01 01/31/18 20:01 - Physical Exam Comments: 01/31/18 22:18 General Appearance: Nourished. No Apparent Distress HEENT: No Pharyngeal Erythema, Tonsillar Exudate, Tonsillar Erythema Neck: No Cervical Lymphadenopathy Respiratory/Chest: Lungs Clear, Normal Breath Sounds. No Crackles, Rales, Rhonchi, Wheezing Cardiovascular: Regular Rhythm, Regular Rate. No Murmur, Gallops, Rubs Gastrointestinal/Abdominal: Normal Bowel Sounds, Soft. Reducible ventral hernia on exam. No Guarding, Rebound, Tenderness Musculoskeletal: No CVA Tenderness Extremity: Normal Capillary Refill Integumentary: Normal Color, Dry, Warm Neurologic: Fully Oriented, Alert, Normal Mood/Affect, Normal Response, ED Treatment Course - LABORATORY CBC & Chemistry Diagram: 01/31/18 20:17 01/31/18 20:16 - ADDITIONAL ORDERS Additional order review: Laboratory Results 01/31/18 20:16 Sodium 139 Potassium 3.9 Chloride 104 Carbon Dioxide 26 Anion Gap 9 BUN 10 Creatinine 0.5 L Creat Clearance w eGFR > 60 Random Glucose 116 H Calcium 9.3 Total Bilirubin 0.4 AST 17 ALT 25 Alkaline Phosphatase 117 Total Protein 7.9 Albumin 4.0 Lipase 66 L 01/31/18 20:17 RBC 4.67 MCV 83.3 MCHC 33.5 RDW 13.8 MPV 9.1 Neutrophils % 67.7 D Lymphocytes % 19.5 D Monocytes % 7.1 Eosinophils % 4.6 H D Basophils % 1.1 - Medications Given in the ED: ED Medications Discontinued Medications Generic Name Dose Route Start Last Admin Trade Name Freq PRN Reason Stop Dose Admin Ondansetron HCl 4 mg 01/31/18 20:00 01/31/18 20:41 Zofran Injection IVPUSH 01/31/18 20:01 4 mg ONCE ONE Administration Medical Decision Making - Medical Decision Making 01/31/18 22:19 The patient is a 62 year old female with a history of HTN, HLD, DM, CAD, Hernia , SBO who presents for evaluation of abdominal pain. Differential includes but is not limited to: Gastritis, Colitis, SBO, Infectious, metabolic derangement. Given the patient's history and physical exam, we will obtain a cbc, cmp, lipase , ua, abdomen/pelvis ct to evaluate further. We will treat with iv fluids, zofran, pepcid and continue to monitor and reassess while here in the ED. 02/01/18 03:36 CBC, cmp, lipase, ua are unremarkable. CT abdomen/pelvis demonstrates a possible small bowel obstruction as read by our compressor station chief engineer radiologist. Given that the patient has a complicated surgical history with her primary surgeons being at [facility], she will require transfer for surgical evaluation. We discussed the case with Dr. Turner at [facility] who accepted the patient for transfer. *DC/Admit/Observation/Transfer Diagnosis at time of Disposition: Small bowel obstruction Abdominal pain Qualifiers: Abdominal location: lower abdomen, unspecified Qualified Code(s): R10.30 - Lower abdominal pain, unspecified - Discharge Dispostion Disposition: TRANSFER ACUTE CARE/OTHER HOSP Condition at time of disposition: Fair - Referrals Referrals: Stacy Guy MD [Primary Care Provider] - - Patient Instructions - Post Discharge Activity - Transfer to Acute Care Facility Receiving Facility: [facility] Accepting Physician:: Dr. Turner
--- NOTE | 2018-01-31 22:03 | PDOC ---
Attending Attestation - Resident Resident Name: GladisReilly - ED Attending Attestation I have performed the following: I have examined & evaluated the patient, The case was reviewed & discussed with the resident, I agree w/resident's findings & plan, Exceptions are as noted - HPI HPI: 01/31/18 22:57 Ms Bermudez is a 62 year old female with a history of HTN, HLD, DM, CAD, Hernia, SBO who presents for evaluation of abdominal pain. 2 days of crampy lower abdominal pain (+) nausea, no vomiting (-) diarrhea (-) fevers, chills - Physicial Exam PE: 01/31/18 22:03 GENERAL: The patient is in no acute distress. LUNGS: Breath sounds equal, clear to auscultation bilaterally. No wheezes, and no crackles. HEART:Regular rate and rhythm, normal S1 and S2 without murmur, rub or gallop. ABDOMEN: Soft, (+) diffusely tender to palpation, no guarding, no rebound EXTREMITIES: Normal range of motion, no edema. No clubbing or cyanosis. No erythema, or tenderness. NEUROLOGICAL: Cranial nerves II through XII grossly intact. Normal speech. No focal neurological deficits. SKIN: Warm, Dry, normal turgor, no rashes or lesions noted. - Medical Decision Making 01/31/18 23:01 DD: SBO, Gastritis, Colitis, Biliary colic, Recurrent hernia Will do: Labs CT Re-assess 01/31/18 23:02 Laboratory Tests 01/31/18 01/31/18 01/31/18 20:16 20:17 21:57 WBC 7.5 Hgb 13.0 Hct 38.8 Plt Count 312 BUN 10 Creatinine 0.5 L Lipase 66 L Urine Nitrite Negative Ur Leukocyte Esterase Trace Urine WBC (Auto) 1 Urine RBC (Auto) None CT pending 02/01/18 02:51 CT concerning for possible SBO Will transfer to [facility] (where pt surgeons are) Clinical impression: ? partial SBO *DC/Admit/Observation/Transfer Diagnosis at time of Disposition: Small bowel obstruction Abdominal pain Qualifiers: Abdominal location: lower abdomen, unspecified Qualified Code(s): R10.30 - Lower abdominal pain, unspecified - Discharge Dispostion Disposition: TRANSFER ACUTE CARE/OTHER HOSP Condition at time of disposition: Fair Decision to Admit order: No - Referrals Referrals: Stacy Guy MD [Primary Care Provider] - - Patient Instructions - Post Discharge Activity - Transfer to Acute Care Facility Receiving Facility: [facility]
[2018-01-31 22:11] LABS: URINE APPEARANCE CLEAR; URINE BILIRUBIN NEGATIVE (<2.0 mg/dL); URINE COLOR YELLOW; URINE GLUCOSE (UA) NEGATIVE (NEGATIVE); URINE KETONE NEGATIVE (NEGATIVE); URINE LEUK ESTERASE TRACE (NEGATIVE); URINE NITRITE NEGATIVE (NEGATIVE); URINE PROTEIN NEGATIVE (NEGATIVE); URINE UROBILINOGEN NEGATIVE mg/dL (0.2-1.0)
[2018-01-31 22:25] LABS: EPI CELLS RARE /HPF (FEW)
[2018-02-01 05:41] VITALS: BP 136/78; PULSE 89; TEMP 98.5
--- NOTE | 2018-02-01 12:15 | EKG ---
Test Reason : Blood Pressure : / mmHG Vent. Rate : 069 BPM Atrial Rate : 069 BPM P-R Int : 190 ms QRS Dur : 154 ms QT Int : 448 ms P-R-T Axes : 041 -28 014 degrees QTc Int : 480 ms NORMAL SINUS RHYTHM RIGHT BUNDLE BRANCH BLOCK ABNORMAL ECG WHEN COMPARED WITH ECG OF 26-MAY-2017 01:18, BORDERLINE CRITERIA FOR LATERAL INFARCT ARE NO LONGER PRESENT Confirmed by REINALDO KENDRICK, RADHA ([id number]) on 02/01/2018 12:14:53 PM Referred By: Confirmed By:RADHA NAJERA MD
== END 2018-02-01 06:32 | disposition short-term general hospital (02) ==
LOC: JER 19:49
PROC: 3E033GC Introduction of Other Therapeutic Substance into Peripheral Vein, Percutaneous Approach (ICD-10-PCS; principal; 2018-01-31)
PROC: 3E033GC Introduction of Other Therapeutic Substance into Peripheral Vein, Percutaneous Approach (ICD-10-PCS; 2018-01-31)
DX: K56.699 Other intestinal obstruction unspecified as to partial versus complete obstruction (principal); I25.10 Atherosclerotic heart disease of native coronary artery without angina pectoris; I10 Essential (primary) hypertension; Z95.0 Presence of cardiac pacemaker; E78.00 Pure hypercholesterolemia, unspecified; E11.9 Type 2 diabetes mellitus without complications; Z79.84 Long term (current) use of oral hypoglycemic drugs; K21.9 Gastro-esophageal reflux disease without esophagitis; J45.909 Unspecified asthma, uncomplicated; Z96.651 Presence of right artificial knee joint; Z88.1 Allergy status to other antibiotic agents; Z91.041 Radiographic dye allergy status
CPT/HCPCS: 36415; 74176-TC; 80053; 81003; 81015; 83690; 85025; 93005; 93010; 99283-25; J7030

== ENCOUNTER 2018-06-24 15:10 | Emergency (ER) | payer OTHER ==
[2018-06-24 15:15] VITALS: BP 145/69; PULSE 67; TEMP 98.4; BMI 41.1
--- NOTE | 2018-06-24 15:34 | PDOC ---
History of Present Illness - General Chief Complaint: Respiratory Stated Complaint: FLU SYMPTOMS Time Seen by Provider: 06/24/18 15:25 History Source: Patient (cough, bodyaches X 4 days) - History of Present Illness Associated Symptoms: reports: cough, fever/chills, muscle aches, nasal congestion, nasal drainage. denies: dizziness, headache, lightheadedness, sore throat, wheezing Past History - Travel Traveled outside of the country in the last 30 days: No Close contact w/someone who was outside of country & ill: No - Past Medical History Allergies/Adverse Reactions: Allergies Allergy/AdvReac Type Severity Reaction Status Date / Time nafcillin [Nafcillin] Allergy Intermediate Itching Verified 06/24/18 15:15 cefazolin Allergy Verified 06/24/18 15:15 Iodinated Contrast- Oral and Allergy Verified 06/24/18 15:15 IV Dye [IV Dye, Iodine Containing Contrast ] vancomycin Allergy Verified 06/24/18 15:15 Home Medications: Ambulatory Orders Amlodipine Besylate [Norvasc -] 10 mg PO DAILY #1 10/02/12 Atorvastatin Ca [Lipitor] 20 mg PO DAILY #1 10/02/12 Omeprazole [Prilosec (RX)] 20 mg PO DAILY #1 10/02/12 Ramipril 2.5 mg PO DAILY #1 10/02/12 metFORMIN HCL [Glucophage -] 500 mg PO BID #1 10/02/12 Aspirin 81 mg PO DAILY #1 02/11/13 Albuterol 0.083% Nebulizer Magali [Ventolin 0.083% Nebulizer Soln -] 1 neb NEB Q4H PRN #1 box 04/25/14 Eluxadoline [Viberzi] 75 mg PO ASDIR 02/06/17 Nystatin Cream [Mycostatin Cream -] 1 applic TP BID #1 applic 01/14/18 Nystatin Cream [Mycostatin Cream -] 1 applic TP BID #1 applic 01/16/18 Benzonatate [Tessalon Pearls -] 100 mg PO TID #21 capsule 06/24/18 Anemia: No Asthma: Yes Cancer: No Cardiac Disorders: Yes CVA: No COPD: No CHF: No Dementia: No Diabetes: Yes GI Disorders: Yes (ACID REFLUX) Disorders: No HTN: Yes Hypercholesterolemia: Yes Kidney Stones: Yes (LITHOTRIPSY) Liver Disease: No Seizures: No Thyroid Disease: No - Surgical History Abdominal Surgery: Yes (UMBILICAL HERNIA REPAIR) Appendectomy: Yes (1988) Cardiac Surgery: Yes (PACEMAKER) Cholecystectomy: No Lung Surgery: No Neurologic Surgery: No Orthopedic Surgery: Yes (rt knee replace(titanium metal)) - Immunization History Immunization Up to Date: Yes - Suicide/Smoking/Psychosocial Hx Smoking Status: No Smoking History: Never smoked Have you smoked in the past 12 months: No Number of Cigarettes Smoked Daily: 0 Hx Alcohol Use: No Drug/Substance Use Hx: No Substance Use Type: None Hx Substance Use Treatment: No Review of Systems - Review of Systems Constitutional: Yes: Chills, Fever HEENTM: No: Throat Pain Respiratory: Yes: Cough. No: Shortness of Breath, Wheezing Cardiac (ROS): No: Chest Pain ABD/GI: No: Abdominal Distended Musculoskeletal: Yes: Muscle Pain Neurological: No: Headache, Numbness, Paresthesia *Physical Exam - Vital Signs Last Vital Signs Temp Pulse Resp BP Pulse Ox 98.4 F 67 18 145/69 96 06/24/18 15:11 06/24/18 15:11 06/24/18 15:11 06/24/18 15:11 06/24/18 15:11 - Physical Exam General Appearance: Yes: Nourished HEENT: positive: EOMI, LOUISE Neck: positive: Supple Respiratory/Chest: positive: Lungs Clear, Normal Breath Sounds Cardiovascular: positive: Regular Rhythm, Regular Rate, S1, S2 Musculoskeletal: positive: Normal Inspection Integumentary: positive: Normal Color Neurologic: positive: siebel architect II-XII NML intact, Fully Oriented, Alert Moderate Sedation - Procedure Monitoring Vital Signs: Procedure Monitoring Vital Signs Temperature 98.4 F 06/24/18 15:11 Pulse Rate 67 06/24/18 15:11 Respiratory Rate 18 06/24/18 15:11 Blood Pressure 145/69 06/24/18 15:11 O2 Sat by Pulse Oximetry (%) 96 06/24/18 15:11 ED Treatment Course - RADIOLOGY Radiology Studies Ordered: Category Date Time Status CHEST PA & LAT [RAD] Stat Radiology 06/24/18 15:31 Ordered Medical Decision Making - Medical Decision Making 06/24/18 15:34 63y/o F with cough, fever and bodyaches X 4 days. She was seen by PCP yesterday , given Rx for tamiflu and zpak. PT is here requesting a cxr. Lungs clear cxr ordered 06/24/18 17:28 Prelim xr with vascular congestion similar to old cxr 08/2017 pt already on zpak *DC/Admit/Observation/Transfer Diagnosis at time of Disposition: Cough - Discharge Dispostion Disposition: HOME Condition at time of disposition: Stable Decision to Admit order: No - Prescriptions Prescriptions: Benzonatate [Tessalon Pearls -] 100 mg PO TID #21 capsule - Referrals Referrals: Stacy Guy MD [Primary Care Provider] - - Patient Instructions Additional Instructions: Please take antibiotics as prescribed Followup with your primary care doctor please return to the Emergency Department if worsening symptoms occurs - Post Discharge Activity
== END 2018-06-24 17:30 | disposition home or self-care (01) ==
LOC: JERFT 15:10
DX: R05 Cough (principal); I10 Essential (primary) hypertension; E78.00 Pure hypercholesterolemia, unspecified; E11.9 Type 2 diabetes mellitus without complications; Z79.84 Long term (current) use of oral hypoglycemic drugs; J45.909 Unspecified asthma, uncomplicated; Z87.442 Personal history of urinary calculi; Z95.0 Presence of cardiac pacemaker
CPT/HCPCS: 71046-TC-FY; 99281-25

== ENCOUNTER 2018-11-11 17:35 | Emergency (ER) | payer OTHER | END 2018-11-12 00:46 | disposition home or self-care (01) | LOC: JER 11-12 00:46 | PROC: 3E0F7GC Introduction of Other Therapeutic Substance into Respiratory Tract, Via Natural or Artificial Opening (ICD-10-PCS; principal; 2018-11-11) | PROC: 3E0333Z Introduction of Anti-inflammatory into Peripheral Vein, Percutaneous Approach (ICD-10-PCS; 2018-11-11) | DX: R05 Cough (principal); I10 Essential (primary) hypertension; E11.9 Type 2 diabetes mellitus without complications; Z79.84 Long term (current) use of oral hypoglycemic drugs; J44.9 Chronic obstructive pulmonary disease, unspecified; J45.909 Unspecified asthma, uncomplicated; G47.33 Obstructive sleep apnea (adult) (pediatric); K58.9 Irritable bowel syndrome, unspecified; G43.909 Migraine, unspecified, not intractable, without status migrainosus; Z95.0 Presence of cardiac pacemaker; E66.01 Morbid (severe) obesity due to excess calories; Z68.41 Body mass index [BMI] 40.0-44.9, adult ==

== ENCOUNTER 2020-06-15 15:02 | Emergency (ER) | payer OTHER ==
[2020-06-15 15:14] VITALS: BMI 40.7
[2020-06-15] MEDS ORDERED: SODIUM CHLORIDE 1,000 ML IV STA (16:29)
[2020-06-15] MEDS ORDERED: ACETAMINOPHEN 1000 MG/100 ML VIAL (NON FORMULARY) IVPB ONE (16:29)
[2020-06-15] MEDS ORDERED: ACETAMINOPHEN INJECTION 100 ML IVPB ONE (17:04)
[2020-06-15 18:06] LABS: BASO % 0.7 % (0-2.0); EOS % 1.1 % (0-4.5); HEMOGLOBIN 13.3 GM/dL (10.7-15.3); MCH 29.7 pg (25.7-33.7); MEAN CELL VOLUME 87.4 fl (80-96); MEAN PLT VOLUME 9.7 fl (7.5-11.1); NEUT % 84.2 % (42.8-82.8); PLATELET COUNT 355 K/MM3 (134-434); RBC 4.47 M/mm3 (3.60-5.2); RDW 15.7 % (11.6-15.6); WHITE BLOOD COUNT 7.7 K/mm3 (4.0-10.0)
[2020-06-15 18:09] LABS: INR 1.16 (0.83-1.09)
[2020-06-15 18:28] LABS: ALBUMIN 4.1 g/dl (3.4-5.0); BLOOD UREA NITROGEN 12.5 mg/dL (7-18); CALCIUM 9.9 mg/dL (8.5-10.1)
[2020-06-15 18:31] LABS: CREATININE 0.6 mg/dL (0.55-1.3)
[2020-06-15 18:33] LABS: BILIRUBIN,TOTAL 0.6 mg/dL (0.2-1); TOT PROT 8.1 g/dl (6.4-8.2)
[2020-06-15] MEDS ORDERED: HURRICAINE SP EXT TUBE 1 EA EACH TP ONE (21:49)
[2020-06-15] MEDS ORDERED: LORazepam 2 MG/ML SDV VIAL ONE (21:50)
[2020-06-15] MEDS ORDERED: LORazepam 2 MG/ML SDV VIAL IVPUSH ONE (22:00)
[2020-06-15 22:23] LABS: EPI CELLS >36 /uL (0-25.1); HYALINE CASTS 1 /uL (0-3.1); PH,URINE 8.5 (5.0-8.0); URINE APPEARANCE CLEAR; URINE BACTERIA 274 /uL (0-1359); URINE BILIRUBIN NEGATIVE (NEGATIVE); URINE COLOR YELLOW; URINE GLUCOSE (UA) NEGATIVE (NEGATIVE); URINE KETONE 1+ (NEGATIVE); URINE LEUK ESTERASE NEGATIVE (NEGATIVE); URINE NITRITE NEGATIVE (NEGATIVE); URINE PROTEIN NEGATIVE (NEGATIVE); URINE RBC 82 /uL (0-23.9); URINE UROBILINOGEN 0.2 mg/dL (0.2-1.0); URINE WBC 6 /uL (0-25.8)
[2020-06-15] MEDS ORDERED: LACTATED RINGERS SOLUTION 1,000 ML/1,000 ML INFUS.BAG IV SCH (23:00)
[2020-06-16] MEDS ORDERED: ACETAMINOPHEN 1000 MG/100 ML VIAL (NON FORMULARY) IVPB ONE (03:13)
[2020-06-16] MEDS ORDERED: ACETAMINOPHEN INJECTION 100 ML IVPB ONE (03:26)
[2020-06-16 06:31] VITALS: BP 135/77; PULSE 94; TEMP 98.4
== END 2020-06-16 07:17 | disposition short-term general hospital (02) ==
LOC: JER 15:02
PROC: 3E033NZ Introduction of Analgesics, Hypnotics, Sedatives into Peripheral Vein, Percutaneous Approach (ICD-10-PCS; principal; 2020-06-15)
PROC: 3E033GC Introduction of Other Therapeutic Substance into Peripheral Vein, Percutaneous Approach (ICD-10-PCS; 2020-06-15)
DX: R10.32 Left lower quadrant pain (principal); K56.609 Unspecified intestinal obstruction, unspecified as to partial versus complete obstruction
CPT/HCPCS: 36415; 71045-TC-FY; 74176-TC; 80053; 81003; 82962; 83605; 83690; 85025; 85610; 87086; 93005; 93010; 99285-25; C9803; J0131; U0003

== ENCOUNTER 2020-08-18 07:55 | Inpatient (IN) | payer OTHER ==
[2020-08-12 14:58] VITALS: BMI 40.4
[~2020-08-18 07:55] MED LIST: CEFAZOLIN 2 GM in DEXTROSE 5%-WATER - 50 ML IVPB ONE; TRANEXAMIC ACID 1000 MG/10 ML VIAL IVPUSH ONE
[2020-08-18] MEDS ORDERED: MIDAZOLAM HCL 2 MG/2 ML SINGLE DOSE VIAL ONE ×2 (08:18→08:47)
[2020-08-18] MEDS: CELECOXIB 200 MG CAPSULE PO ONE (08:40)
[2020-08-18] MEDS ORDERED: BUPIVACAINE LIPOSOME/PF (EXPAREL) 266 MG/20 ML VIAL ONE (08:47)
[2020-08-18] MEDS ORDERED: SODIUM CHLORIDE 0.9% P/F 10 ML VIAL IJ ONE (08:48)
[2020-08-18] MEDS ORDERED: LIDOCAINE HCL/PF 2% SDV 5ML VIAL ONE (09:57)
[2020-08-18] MEDS ORDERED: PROPOFOL 20 ML ONE ×2 (09:57)
[2020-08-18] MEDS ORDERED: ceFAZolin SODIUM 1 GM VIAL ONE ×2 (10:15→10:29)
[2020-08-18] MEDS ORDERED: ONDANSETRON 4 MG/2 ML VIAL ONE (10:29)
[2020-08-18] MEDS ORDERED: VANCOMYCIN 1,000 MG VIAL (RESTRICTED TO ID ONLY) ONE (11:39)
[2020-08-18] MEDS ORDERED: VANCOMYCIN 1,000 MG VIAL (RESTRICTED TO ID ONLY) IVPB ONE (11:47)
[2020-08-18] MEDS ORDERED: ALBUTEROL SO4 0.083% IH SOL 2.5 MG/3 ML VIAL.NEB. NEB PRN (12:24)
[2020-08-18] MEDS ORDERED: MAG HYDROX/AL HYDROX/SIMETH 30 ML UNIT-DOSE CUP PO PRN (12:25)
[2020-08-18] MEDS ORDERED: MAGNESIUM HYDROX 2400MG/30ML ORAL SUSPENSION 30 ML CUP PO PRN (12:25)
[2020-08-18] MEDS ORDERED: ONDANSETRON 4 MG/2 ML VIAL IVPUSH PRN (12:25)
[2020-08-18] MEDS ORDERED: LACTATED RINGERS SOLUTION 1,000 ML IV SCH (12:30)
[2020-08-18] MEDS ORDERED: HYDROmorphone HCL/PF 1 MG/ML VIAL ONE (12:36)
[2020-08-18] MEDS ORDERED: ACETAMINOPHEN INJECTION 100 ML IVPB ONE (12:36)
[2020-08-18] MEDS ORDERED: ACETAMINOPHEN 1000 MG/100 ML VIAL (NON FORMULARY) IVPB PRN (12:38)
[2020-08-18] MEDS: HYDROmorphone HCL/PF 1 MG/ML VIAL IVPUSH PRN ×2 (12:40→13:10)
[2020-08-18] MEDS: INSULIN SLIDING SCALE (NOVOLOG) 1 VIAL SQ SCH ×3 (12:50→21:33)
[2020-08-18] MEDS ORDERED: oxyCODONE HCL 5 MG TABLET PO PRN (13:13)
[2020-08-18] MEDS: oxyCODONE HCL 5 MG TABLET PO PRN ×3 (14:43→20:11)
[2020-08-18] MEDS: GEMFIBROZIL 600 MG TABLET (FP) PO SCH (18:20)
[2020-08-18] MEDS: ACETAMINOPHEN 1000 MG/100 ML VIAL (NON FORMULARY) IVPB PRN (18:55)
[2020-08-18] MEDS ORDERED: ACETAMINOPHEN 325 MG TABLET (FP) PO SCH (20:00)
[2020-08-18] MEDS: CEFAZOLIN 2 GM/D5W 2 GM/50 ML ML IVPB SCH (20:06)
[2020-08-18] MEDS: SENNOSIDES/DOCUSATE COMBO (SENNA PLUS) TABLET (UD) PO SCH (21:32)
[2020-08-18] MEDS: ATORVASTATIN CA 20 MG TABLET (FP) PO SCH (21:32)
[2020-08-18] MEDS: oxyCODONE HCL 10 MG SUSTAINED ACTING TABLET PO SCH (21:32)
[2020-08-18] MEDS: traMADol HCL 50 MG TABLET PO PRN (22:49)
[2020-08-19] MEDS: oxyCODONE HCL 5 MG TABLET PO PRN ×3 (01:42→16:43)
[2020-08-19] MEDS: CEFAZOLIN 2 GM/D5W 2 GM/50 ML ML IVPB SCH (01:43)
[2020-08-19] MEDS: ACETAMINOPHEN 1000 MG/100 ML VIAL (NON FORMULARY) IVPB PRN (01:47)
[2020-08-19] MEDS: traMADol HCL 50 MG TABLET PO PRN (06:20)
[2020-08-19] MEDS: INSULIN SLIDING SCALE (NOVOLOG) 1 VIAL SQ SCH ×4 (06:21→21:09)
[2020-08-19 08:03] LABS: HEMATOCRIT 30.4 % (32.4-45.2); HEMOGLOBIN 10.3 GM/dl (10.7-15.3); MCH 30.5 pg (25.7-33.7); MCHC 33.9 g/dl (32.0-36.0); MEAN PLT VOLUME 9.5 fl (7.5-11.1); PLATELET COUNT 286 K/MM3 (134-434); RBC 3.38 M/mm3 (3.60-5.2); RDW 15.7 % (11.6-15.6); WHITE BLOOD COUNT 7.7 K/mm3 (4.0-10.8)
[2020-08-19] MEDS ORDERED: PATIENT'S OWN MEDICATION (NON-FORMULARY) (Eluxadoline [Viberzi] 75 MG Tablet) PO SCH (10:00)
[2020-08-19] MEDS: SENNOSIDES/DOCUSATE COMBO (SENNA PLUS) TABLET (UD) PO SCH ×2 (11:19→21:07)
[2020-08-19] MEDS: amLODIPine BESYLATE 10 MG TABLET (FP) PO SCH (11:20)
[2020-08-19] MEDS: GEMFIBROZIL 600 MG TABLET (FP) PO SCH (11:20)
[2020-08-19] MEDS: PANTOPRAZOLE 40 MG TABLET PO SCH (11:21)
[2020-08-19] MEDS: ASPIRIN 325 MG TABLET PO SCH (11:21)
[2020-08-19] MEDS: oxyCODONE HCL 10 MG SUSTAINED ACTING TABLET PO SCH ×2 (11:21→21:07)
[2020-08-19] MEDS: ACETAMINOPHEN 325 MG TABLET (FP) PO SCH ×3 (11:22→21:08)
[2020-08-19] MEDS: RAMIPRIL 2.5 MG CAPSULE PO SCH (11:23)
[2020-08-19] MEDS: azaTHIOprine 50 MG TABLET PO SCH (11:26)
[2020-08-19] MEDS: CELECOXIB 200 MG CAPSULE PO ONE (15:59)
[2020-08-19] MEDS: ATORVASTATIN CA 20 MG TABLET (FP) PO SCH (21:07)
[2020-08-20] MEDS: oxyCODONE HCL 5 MG TABLET PO PRN ×2 (02:54→06:57)
[2020-08-20] MEDS: ACETAMINOPHEN 325 MG TABLET (FP) PO SCH ×2 (02:55→10:11)
[2020-08-20] MEDS: INSULIN SLIDING SCALE (NOVOLOG) 1 VIAL SQ SCH ×2 (06:50→11:53)
[2020-08-20] MEDS: GEMFIBROZIL 600 MG TABLET (FP) PO SCH (06:51)
[2020-08-20] MEDS ORDERED: diphenhydrAMINE HCL 50 MG CAPSULE PO PRN (08:12)
[2020-08-20 08:13] LABS: HEMATOCRIT 30.3 % (32.4-45.2); HEMOGLOBIN 9.9 GM/dl (10.7-15.3); MCH 29.4 pg (25.7-33.7); MCHC 32.6 g/dl (32.0-36.0); MEAN CELL VOLUME 89.9 fl (80-96); PLATELET COUNT 308 K/MM3 (134-434); RBC 3.37 M/mm3 (3.60-5.2); RDW 16.1 % (11.6-15.6); WHITE BLOOD COUNT 6.5 K/mm3 (4.0-10.8)
[2020-08-20] MEDS: SENNOSIDES/DOCUSATE COMBO (SENNA PLUS) TABLET (UD) PO SCH (10:19)
[2020-08-20] MEDS: ASPIRIN 325 MG TABLET PO SCH (10:21)
[2020-08-20] MEDS: PANTOPRAZOLE 40 MG TABLET PO SCH (10:21)
[2020-08-20] MEDS: amLODIPine BESYLATE 10 MG TABLET (FP) PO SCH ×2 (10:21→10:31)
[2020-08-20] MEDS: RAMIPRIL 2.5 MG CAPSULE PO SCH ×2 (10:21→10:31)
[2020-08-20] MEDS: azaTHIOprine 50 MG TABLET PO SCH (10:26)
[2020-08-20] MEDS: oxyCODONE HCL 10 MG SUSTAINED ACTING TABLET PO SCH (13:38)
[2020-08-20 14:18] VITALS: BP 138/72; PULSE 93; TEMP 98.6
== END 2020-08-20 16:34 | disposition home health service (06) | DRG 470 ==
LOC: FM/S 07:55
PROVIDERS: ADMIT Orthopaedic Surgery; ATTEND Orthopaedic Surgery
PROC: 8E0Y0CZ Robotic Assisted Procedure of Lower Extremity, Open Approach (ICD-10-PCS; 2020-08-18)
PROC: 0SRD0J9 Replacement of Left Knee Joint with Synthetic Substitute, Cemented, Open Approach (ICD-10-PCS; principal; 2020-08-18 10:29)
DX: M17.12 Unilateral primary osteoarthritis, left knee (principal); I10 Essential (primary) hypertension
CPT/HCPCS: 36415; 73560-TC-LT-FY; 82962; 85027; 94640; 94760; 97010-GP; 97116-GP; 97162-GP; J0131

== ENCOUNTER 2020-10-04 19:24 | Emergency (ER) | payer OTHER ==
[2020-10-04 19:38] VITALS: TEMP 98.6; BMI 40.9
[2020-10-04 20:59] LABS: BASO % 0.7 % (0-2.0); EOS % 6.9 % (0-4.5); HEMATOCRIT 32.2 % (32.4-45.2); HEMOGLOBIN 10.7 GM/dL (10.7-15.3); LYMPH % 14.2 % (8-40); MCH 28.3 pg (25.7-33.7); MCHC 33.2 g/dl (32.0-36.0); MEAN CELL VOLUME 85.4 fl (80-96); MEAN PLT VOLUME 8.4 fl (7.5-11.1); MONO % 9.3 % (3.8-10.2); NEUT % 68.9 % (42.8-82.8); PLATELET COUNT 374 10^3/uL (134-434); RBC 3.77 M/mm3 (3.60-5.2); RDW 15.9 % (11.6-15.6); WHITE BLOOD COUNT 6.8 K/mm3 (4.0-10.0)
[2020-10-04 21:09] LABS: CALCIUM 9.3 mg/dL (8.5-10.1)
[2020-10-04 21:10] LABS: ALBUMIN 3.8 g/dl (3.4-5.0); BLOOD UREA NITROGEN 10.8 mg/dL (7-18)
[2020-10-04 21:13] LABS: CREATININE 0.5 mg/dL (0.55-1.3)
[2020-10-04 21:14] LABS: BILIRUBIN,TOTAL 0.4 mg/dL (0.2-1)
[2020-10-04 21:15] LABS: TOT PROT 7.7 g/dl (6.4-8.2)
[2020-10-04 23:28] VITALS: BP 143/70; PULSE 68
== END 2020-10-04 23:30 | disposition home or self-care (01) ==
LOC: JER 19:24
DX: R60.9 Edema, unspecified (principal)
CPT/HCPCS: 36415; 80053; 85025; 93971-TC; 99284-25

== ENCOUNTER 2021-03-21 19:37 | Observation (INO) | payer OTHER ==
[2021-03-21 19:48] VITALS: BMI 42.0
[2021-03-21 21:11] LABS: BASO % 0.3 % (0-2.0); EOS % 4.5 % (0-4.5); HEMATOCRIT 36.5 % (32.4-45.2); HEMOGLOBIN 12.4 GM/dL (10.7-15.3); LYMPH % 21.2 % (8-40); MCH 29.1 pg (25.7-33.7); MCHC 33.9 g/dl (32.0-36.0); MEAN CELL VOLUME 85.9 fl (80-96); MEAN PLT VOLUME 9.4 fl (7.5-11.1); MONO % 8.9 % (3.8-10.2); NEUT % 65.1 % (42.8-82.8); PLATELET COUNT 377 10^3/uL (134-434); RBC 4.25 M/mm3 (3.60-5.2); RDW 15.4 % (11.6-15.6); WHITE BLOOD COUNT 6.2 K/mm3 (4.0-10.0)
[2021-03-21 21:24] LABS: INR 1.04 (0.83-1.09); PROTHROMBIN TIME (PATIENT) 12.2 SEC (9.7-13.0)
[2021-03-21 21:26] LABS: ACTIVATED PTT 31.1 SECONDS (25.2-36.5)
[2021-03-21 21:35] LABS: CHLORIDE 103 mmol/L (98-107); SODIUM 139 mmol/L (136-145)
[2021-03-21 21:38] LABS: ALBUMIN 3.6 g/dl (3.4-5.0); ANION GAP 9 MMOL/L (8-16); BLOOD UREA NITROGEN 12.8 mg/dL (7-18); CALCIUM 9.5 mg/dL (8.5-10.1); CO2 26 mmol/L (21-32); GLUCOSE,RANDOM 164 mg/dL (74-106)
[2021-03-21 21:42] LABS: CREATININE 0.9 mg/dL (0.55-1.3); SGOT/AST 18 U/L (15-37); SGPT/ALT 24 U/L (13-61)
[2021-03-21 21:43] LABS: BILIRUBIN,TOTAL 0.3 mg/dL (0.2-1); TOT PROT 7.8 g/dl (6.4-8.2)
[2021-03-21 21:45] LABS: ALK PHOS 140 U/L (45-117)
[2021-03-21] MEDS ORDERED: ASPIRIN 81 MG CHEWABLE TABLETS PO ONE (21:49)
[2021-03-21] MEDS ORDERED: ASPIRIN 81 MG CHEWABLE TABLETS ONE (21:56)
[2021-03-21] MEDS ORDERED: NITROGLYCERIN SUBLINGUAL 1/200 0.3 MG BTL SL ONE (22:40)
[2021-03-21] MEDS ORDERED: ACETAMINOPHEN 325 MG TABLET (FP) PO ONE (22:49)
[2021-03-21] MEDS ORDERED: ACETAMINOPHEN 325 MG TABLET (FP) ONE (23:00)
[2021-03-22] MEDS ORDERED: RAMIPRIL 5 MG CAPSULE ONE (08:52)
[2021-03-22] MEDS ORDERED: amLODIPine BESYLATE 5 MG TABLET (FP) ONE (08:52)
[2021-03-22] MEDS ORDERED: ASPIRIN 81 MG CHEWABLE TABLETS ONE (08:52)
[2021-03-22 09:17] VITALS: TEMP 98.1
[2021-03-22] MEDS ORDERED: RAMIPRIL 2.5 MG CAPSULE PO SCH (10:00)
[2021-03-22] MEDS ORDERED: ASPIRIN 81 MG CHEWABLE TABLETS PO SCH (10:00)
[2021-03-22] MEDS ORDERED: amLODIPine BESYLATE 10 MG TABLET (FP) PO SCH (10:00)
[2021-03-22] MEDS ORDERED: BUDESONIDE/FORMETEROL FUMARATE 160/4.5 mcg INHALER IH SCH (10:00)
[2021-03-22] MEDS: INSULIN SLIDING SCALE (NOVOLOG) 1 VIAL SQ SCH ×2 (11:35→17:36)
[2021-03-22 15:54] VITALS: BP 106/47; PULSE 69
[2021-03-22] MEDS ORDERED: metFORMIN HCL 500 MG TABLET (FP) PO SCH (16:30)
[2021-03-22] MEDS ORDERED: metFORMIN HCL 500 MG TABLET (FP) ONE (17:32)
[2021-03-22] MEDS ORDERED: ATORVASTATIN CA 20 MG TABLET (FP) PO SCH (22:00)
== END 2021-03-22 19:00 | disposition home or self-care (01) ==
LOC: JER 19:37 → JERBED 20:47
PROVIDERS: ADMIT Internal Medicine; ATTEND Internal Medicine
DX: I25.10 Atherosclerotic heart disease of native coronary artery without angina pectoris (principal); I49.5 Sick sinus syndrome; E11.69 Type 2 diabetes mellitus with other specified complication; I27.20 Pulmonary hypertension, unspecified; R07.9 Chest pain, unspecified; G47.30 Sleep apnea, unspecified; E78.00 Pure hypercholesterolemia, unspecified; Z95.0 Presence of cardiac pacemaker; I38 Endocarditis, valve unspecified; I11.9 Hypertensive heart disease without heart failure; K59.00 Constipation, unspecified; K50.90 Crohn's disease, unspecified, without complications; K43.9 Ventral hernia without obstruction or gangrene
CPT/HCPCS: 36415; 71046-TC-FY; 80053; 82550; 82962; 84484; 85025; 85610; 85730; 93005; 93010; 93306-TC; 99285-25; C9803; G0378; U0003; U0005

== ENCOUNTER 2021-11-03 18:49 | Inpatient (IN) | payer OTHER ==
[2021-11-03 19:25] VITALS: BMI 42.0
[2021-11-03] MEDS ORDERED: ACETAMINOPHEN 1000 MG/100 ML BAG IVPB ONE (19:46)
[2021-11-03 20:15] LABS: BASO % 1.4 % (0-2.0); EOS % 5.7 % (0-4.5); HEMATOCRIT 38.5 % (32.4-45.2); HEMOGLOBIN 12.7 GM/dL (10.7-15.3); MCH 27.4 pg (25.7-33.7); MCHC 32.9 g/dl (32.0-36.0); MEAN CELL VOLUME 83.3 fl (80-96); MEAN PLT VOLUME 9.2 fl (7.5-11.1); MONO % 9.5 % (3.8-10.2); NEUT % 65.4 % (42.8-82.8); PLATELET COUNT 313 10^3/uL (134-434); RBC 4.62 M/mm3 (3.60-5.2); RDW 14.9 % (11.6-15.6); WHITE BLOOD COUNT 5.3 K/mm3 (4.0-10.0)
[2021-11-03 20:23] LABS: INR 1.06 (0.83-1.09); PROTHROMBIN TIME (PATIENT) 12.2 SEC (9.7-13.0)
[2021-11-03 20:26] LABS: ACTIVATED PTT 30.2 SECONDS (25.2-36.5)
[2021-11-03] MEDS ORDERED: ACETAMINOPHEN INJECTION 100 ML IVPB ONE (20:33)
[2021-11-03 20:37] LABS: CALCIUM 9.4 mg/dL (8.5-10.1)
[2021-11-03 20:38] LABS: ALBUMIN 3.8 g/dl (3.4-5.0); BLOOD UREA NITROGEN 11.1 mg/dL (7-18)
[2021-11-03 20:41] LABS: CREATININE 0.5 mg/dL (0.55-1.3)
[2021-11-03 20:42] LABS: TOT PROT 7.8 g/dl (6.4-8.2)
[2021-11-03 20:43] LABS: BILIRUBIN,TOTAL 0.4 mg/dL (0.2-1)
[2021-11-03 20:46] LABS: N-TERMINAL BNP 27.9 pg/ml (5-125)
[2021-11-03] MEDS ORDERED: ATORVASTATIN CA 20 MG TABLET (FP) PO SCH (22:00)
[2021-11-03 22:49] LABS: PH,URINE 5.5 (5.0-8.0); URINE APPEARANCE CLEAR; URINE BILIRUBIN NEGATIVE (NEGATIVE); URINE COLOR YELLOW; URINE GLUCOSE (UA) NEGATIVE (NEGATIVE); URINE KETONE NEGATIVE (NEGATIVE); URINE LEUK ESTERASE NEGATIVE (NEGATIVE); URINE NITRITE NEGATIVE (NEGATIVE); URINE PROTEIN NEGATIVE (NEGATIVE); URINE UROBILINOGEN 0.2 mg/dL (0.2-1.0)
[2021-11-04] MEDS ORDERED: ATORVASTATIN CA 20 MG TABLET (FP) ONE (02:15)
[2021-11-04] MEDS: INSULIN SLIDING SCALE (NOVOLOG) 1 VIAL SQ SCH ×3 (02:21→11:21)
[2021-11-04] MEDS: BUDESONIDE/FORMETEROL FUMARATE 160/4.5 mcg INHALER IH SCH ×2 (03:51→09:41)
[2021-11-04 09:59] VITALS: BP 148/65; PULSE 68; RESP 18; TEMP 98
[2021-11-04] MEDS ORDERED: amLODIPine BESYLATE 10 MG TABLET (FP) PO SCH (10:00)
[2021-11-04] MEDS ORDERED: azaTHIOprine 50 MG TABLET PO SCH (11:45)
[2021-11-04] MEDS ORDERED: RAMIPRIL 2.5 MG CAPSULE PO SCH (11:45)
[2021-11-04] MEDS ORDERED: PANTOPRAZOLE 40 MG TABLET PO SCH (11:45)
[2021-11-04] MEDS ORDERED: ASPIRIN 81 MG CHEWABLE TABLETS PO SCH (11:45)
[2021-11-04] MEDS ORDERED: GEMFIBROZIL 600 MG TABLET (FP) PO SCH (16:30)
== END 2021-11-04 14:26 | disposition home or self-care (01) | DRG 313 ==
LOC: JER 18:49 → JERBED 19:45 → OBSVTOIN 19:45 → J4W 11-04 05:11
PROVIDERS: ADMIT Internal Medicine; ATTEND Internal Medicine
DX: R07.89 Other chest pain (principal); K50.90 Crohn's disease, unspecified, without complications; Z68.41 Body mass index [BMI] 40.0-44.9, adult; E66.01 Morbid (severe) obesity due to excess calories; E11.9 Type 2 diabetes mellitus without complications; I10 Essential (primary) hypertension; E78.5 Hyperlipidemia, unspecified; K21.9 Gastro-esophageal reflux disease without esophagitis
CPT/HCPCS: 0241U-QW; 36415; 71046-TC-FY; 80053; 81003; 82550; 82962; 83735; 83880; 84484; 85025; 85610; 85730; 87086; 87186; 93005; 93010; 99285-25

== ENCOUNTER 2022-02-18 18:54 | Emergency (ER) | payer OTHER ==
[2022-02-18 19:24] VITALS: BP 142/69; PULSE 78; RESP 20; TEMP 98.3; BMI 43.1
[2022-02-18 22:43] LABS: INR 1.09 (0.83-1.09); PROTHROMBIN TIME (PATIENT) 12.5 SEC (9.7-13.0)
[2022-02-18 22:45] LABS: ACTIVATED PTT 30.3 SECONDS (25.2-36.5)
== END 2022-02-18 23:38 | disposition home or self-care (01) ==
LOC: JER 18:54
DX: S80.11XA Contusion of right lower leg, initial encounter (principal)
CPT/HCPCS: 36415; 72170-TC-FY; 73502-TC-RT-FY; 73552-TC-RT-FY; 85379; 85610; 85730; 93971-TC; 99284-25

== ENCOUNTER 2022-08-15 18:01 | Emergency (ER) | payer OTHER ==
[2022-08-15 18:17] VITALS: BP 142/70; PULSE 71; RESP 18; TEMP 98; BMI 42.0
== END 2022-08-15 20:06 | disposition home or self-care (01) ==
LOC: JER 18:01 → JERFT 18:01
DX: M79.604 Pain in right leg (principal)
CPT/HCPCS: 93971-TC; 99284-25